=== PATIENT | female | born 1970 | race Caucasian/White ===

== ENCOUNTER 2018-11-18 05:41 | Inpatient (IN) | payer BC ==
[2018-11-13 15:25] VITALS: BMI 31.2
[2018-11-18] VITALS (16 sets, daily range): BP systolic 100–146; BP diastolic 46–85; PULSE 56–69; RESP 16–21; Ht 154.9 cm; Wt 72.5 kg
[~2018-11-18] VITALS: Ht 154.9 cm; Wt 72.5 kg
[~2018-11-18 05:41] MED LIST: DEXA4TAB PO; DEXA6TAB2 PO; FAMO-96 PO; LEVE-5 PO
[2018-11-18] MEDS ORDERED: CEFAZOLIN 2 GM/50 ML (PMX) 50 ML IVPB SCH (06:00)
[2018-11-18] MEDS ORDERED: SOD CHLORIDE 0.9% 1,000 ML IV ONE (06:00)
[2018-11-18] MEDS ORDERED: THROMBIN 5000 UNIT (RECOTHROM) VIAL ONE ×4 (06:58→14:36)
[2018-11-18] MEDS ORDERED: GELATIN SIZE 100 SPONGE ONE ×2 (06:58→14:36)
[2018-11-18] MEDS ORDERED: LIDOCAINE 1%/EPI 30 ML INJ ONE (06:59)
[2018-11-18] MEDS ORDERED: POLYMYXIN/BACITRACIN 1L IRRIG ONE ×2 (06:59→11:45)
[2018-11-18] MEDS ORDERED: POVIDONE IODINE 10% 28.4 GM OINT ONE (07:40)
[2018-11-18] MEDS ORDERED: PROPOFOL 20 ML ONE (07:40)
[2018-11-18] MEDS ORDERED: SEVOFLURANE 15 MIN ONE (07:40)
[2018-11-18] MEDS ORDERED: ROCURONIUM 50 MG INJ ONE (07:46)
[2018-11-18] MEDS ORDERED: LIDOCAINE 2% (SDV) 5 ML INJ ONE (07:46)
[2018-11-18] MEDS ORDERED: MANNITOL 20% 500 ML IV ONE (08:00)
[2018-11-18] MEDS ORDERED: DEXAMETHASONE 4 MG/ML 5 ML INJ ONE ×2 (08:23→14:40)
[2018-11-18] MEDS ORDERED: BUPIVACAINE 0.5% (SDV) 30 ML INJ ONE (09:02)
[2018-11-18] MEDS ORDERED: HEMOSTATIC MATRIX SYG ZFS ONE (09:44)
[2018-11-18] MEDS ORDERED: HEMOSTATIC MATRIX/ THROMBIN 1 EA SYG ZFS ONE ×2 (11:16→14:50)
[2018-11-18] MEDS ORDERED: ALBUMIN HUMAN 5% 250 ML ONE (14:44)
[2018-11-18] MEDS ORDERED: BACITRACIN/POLYMYXIN 28.35 GM OINT TOP ONE (15:22)
[2018-11-18] MEDS ORDERED: MIDAZOLAM 1 MG/ML 2 ML INJ IV PRN ×2 (16:00→16:30)
[2018-11-18] MEDS ORDERED: HYDROmorphONE 0.5 MG/0.5 ML SYG IV PRN ×4 (16:00→17:00)
[2018-11-18] MEDS ORDERED: ONDANSETRON 4 MG INJ IV PRN ×3 (16:00→17:00)
[2018-11-18] MEDS ORDERED: LABETALOL HCL 20MG INJ IV PRN ×2 (16:00→16:30)
[2018-11-18] MEDS ORDERED: MEPERIDINE 25 MG INJ IV PRN ×2 (16:00→16:30)
[2018-11-18] MEDS ORDERED: hydrALAzine 20 MG INJ IV PRN ×2 (16:00→16:30)
[2018-11-18] MEDS ORDERED: ALBUTEROL 0.083% (NEB) 2.5 MG/3 ML AMP HHN PRN ×2 (16:00→16:30)
[2018-11-18] MEDS ORDERED: DIPHENHYDRAMINE 50 MG INJ IV PRN ×2 (16:00→16:30)
[2018-11-18] MEDS ORDERED: EPHEDrine 25 MG/5 ML SYG IV PRN ×2 (16:00→16:30)
[2018-11-18] MEDS ORDERED: HYDROmorphONE 1 MG/5 ML IV SYRINGE IV PRN ×3 (16:30)
[2018-11-18] MEDS ORDERED: METOCLOPRAMIDE 10 MG INJ IV PRN (16:30)
[2018-11-18] MEDS ORDERED: NS + KCL 20 MEQ 1,000 ML IV SCH (17:00)
[2018-11-18] MEDS ORDERED: HYDROCODONE/APAP (5/325) TAB PO PRN (17:00)
[2018-11-18] MEDS ORDERED: CEFAZOLIN 1 GM/50 ML (PMX) 50 ML IVPB SCH (17:00)
[2018-11-18] MEDS ORDERED: BISACODYL 10 MG SUPP PR PRN (17:00)
[2018-11-18] MEDS ORDERED: NALOXONE (0.4 MG/ML) INJ IV PRN (17:00)
[2018-11-18] MEDS ORDERED: DEXAMETHASONE 4 MG/ML 1 ML INJ IV SCH (18:00)
[2018-11-18] MEDS: DOCUSATE SODIUM 100 MG CAP PO SCH (20:41)
[2018-11-18] MEDS: NEOMYC/POLYMYX/BACIT 30 GM OINT TOP SCH (20:42)
[2018-11-18] MEDS: CEFAZOLIN 1 GM/50 ML (PMX) 50 ML IVPB SCH (20:43)
[2018-11-18] MEDS: NS + KCL 20 MEQ 1,000 ML IV SCH (20:43)
[2018-11-18] MEDS: LEVETIRACETAM 500 MG (PMX) 100 ML IVPB SCH (20:43)
[2018-11-19] VITALS (54 sets, daily range): BP systolic 99–167; BP diastolic 63–129; PULSE 63–108; RESP 15–25
[2018-11-19] MEDS: DEXAMETHASONE 4 MG/ML 1 ML INJ IV SCH ×4 (00:22→18:08)
[2018-11-19] MEDS: CEFAZOLIN 1 GM/50 ML (PMX) 50 ML IVPB SCH ×2 (04:42→12:57)
[2018-11-19] MEDS ORDERED: PANTOPRAZOLE 40 MG INJ IV SCH (06:00)
[2018-11-19] MEDS: NS + KCL 20 MEQ 1,000 ML IV SCH ×2 (08:17→18:08)
[2018-11-19] MEDS: NEOMYC/POLYMYX/BACIT 30 GM OINT TOP SCH ×3 (09:20→20:07)
[2018-11-19] MEDS: LEVETIRACETAM 500 MG (PMX) 100 ML IVPB SCH ×2 (09:20→20:06)
[2018-11-19] MEDS: DOCUSATE SODIUM 100 MG CAP PO SCH ×2 (16:36→20:06)
[2018-11-20] MEDS: DEXAMETHASONE 4 MG/ML 1 ML INJ IV SCH ×4 (00:43→17:34)
[2018-11-20] MEDS: NS + KCL 20 MEQ 1,000 ML IV SCH ×3 (03:24→23:38)
[2018-11-20 04:35] VITALS: BP 125/75; PULSE 67; RESP 17
[2018-11-20 07:40] VITALS: BP 116/64; PULSE 71; RESP 20
[2018-11-20] MEDS: DOCUSATE SODIUM 100 MG CAP PO SCH ×2 (08:30→20:54)
[2018-11-20] MEDS: FAMOTIDINE 20 MG INJ IV SCH ×2 (08:30→20:54)
[2018-11-20] MEDS: NEOMYC/POLYMYX/BACIT 30 GM OINT TOP SCH ×3 (08:30→21:02)
[2018-11-20] MEDS: LEVETIRACETAM 500 MG (PMX) 100 ML IVPB SCH ×2 (09:00→21:02)
[2018-11-20] MEDS ORDERED: DEXTROSE 50% 50 ML SYRINGE IV PRN ×2 (11:30)
[2018-11-20] MEDS ORDERED: GLUCAGON 1 MG INJ IM PRN (11:30)
[2018-11-20] MEDS ORDERED: GLUCOSE GEL 15 GRAM TUBE BUCCAL PRN (11:30)
[2018-11-20] MEDS ORDERED: GLUCOSE GEL 15 GRAM TUBE PO PRN ×2 (11:30)
[2018-11-20 11:37] VITALS: BP 114/68; PULSE 76; RESP 20
[2018-11-20] MEDS: INSULIN ASPART [NOVOLOG] 3 ML PEN SC SCH ×3 (12:22→21:01)
[2018-11-20 15:18] VITALS: BP 111/65; PULSE 84; RESP 20
[2018-11-20 19:22] VITALS: BP 119/56; PULSE 77; RESP 18
[2018-11-21] VITALS: BP 122/59; PULSE 75; RESP 17
[2018-11-21] MEDS: DEXAMETHASONE 4 MG/ML 1 ML INJ IV SCH ×5 (00:47→23:52)
[2018-11-21 04:32] VITALS: BP 109/62; PULSE 62; RESP 17
[2018-11-21 07:31] VITALS: BP 114/63; PULSE 69; RESP 17
[2018-11-21] MEDS: INSULIN ASPART [NOVOLOG] 3 ML PEN SC SCH ×5 (07:55→20:59)
[2018-11-21] MEDS: NEOMYC/POLYMYX/BACIT 30 GM OINT TOP SCH ×3 (08:14→20:37)
[2018-11-21] MEDS: DOCUSATE SODIUM 100 MG CAP PO SCH ×2 (08:15→20:30)
[2018-11-21] MEDS: FAMOTIDINE 20 MG INJ IV SCH ×2 (08:15→20:30)
[2018-11-21] MEDS: LEVETIRACETAM 500 MG (PMX) 100 ML IVPB SCH ×2 (09:39→20:30)
[2018-11-21] MEDS: NS + KCL 20 MEQ 1,000 ML IV SCH ×2 (09:43→20:30)
[2018-11-21 11:03] VITALS: BP 112/55; PULSE 75; RESP 17
[2018-11-21 15:24] VITALS: BP 103/60; PULSE 82; RESP 20
[2018-11-22] VITALS: BP 105/61; PULSE 68; RESP 18
[2018-11-22 04:00] VITALS: BP 146/74; PULSE 64; RESP 19
[2018-11-22] MEDS: DEXAMETHASONE 4 MG/ML 1 ML INJ IV SCH ×2 (06:26→12:27)
[2018-11-22 07:34] VITALS: BP 130/67; PULSE 60; RESP 20
[2018-11-22] MEDS: INSULIN ASPART [NOVOLOG] 3 ML PEN SC SCH ×2 (08:16→11:37)
[2018-11-22] MEDS: NEOMYC/POLYMYX/BACIT 30 GM OINT TOP SCH ×2 (08:21→12:28)
[2018-11-22] MEDS: FAMOTIDINE 20 MG INJ IV SCH (08:22)
[2018-11-22] MEDS: LEVETIRACETAM 500 MG (PMX) 100 ML IVPB SCH (08:22)
[2018-11-22] MEDS: DOCUSATE SODIUM 100 MG CAP PO SCH (08:22)
[2018-11-22 11:50] VITALS: BP 132/70; PULSE 70; RESP 20
== END 2018-11-22 14:39 | disposition home health service (06) | DRG 26 ==
LOC: REC 05:41 → ICU 17:30 → TEL 11-19 23:36
PROVIDERS: ADMIT Neurological Surgery; ATTEND Neurological Surgery
PROC: 00B20ZZ Excision of Dura Mater, Open Approach (ICD-10-PCS; 2018-11-18)
PROC: 8E09XBZ Computer Assisted Procedure of Head and Neck Region (ICD-10-PCS; 2018-11-18)
PROC: 00B70ZZ Excision of Cerebral Hemisphere, Open Approach (ICD-10-PCS; principal; 2018-11-18 07:30)
DX: C79.31 Secondary malignant neoplasm of brain (principal); R47.01 Aphasia; G81.91 Hemiplegia, unspecified affecting right dominant side; C50.919 Malignant neoplasm of unspecified site of unspecified female breast; R73.9 Hyperglycemia, unspecified; Z79.899 Other long term (current) drug therapy; R47.1 Dysarthria and anarthria; R47.02 Dysphasia; T38.0X5A Adverse effect of glucocorticoids and synthetic analogues, initial encounter
CPT/HCPCS: 70450; 70553; 80048; 82962; 85025; 86850; 86900; 86901; 86920; 87086; 88307; 88331; 88341; 88342; 92507; 92523; 92526; 92610; 97110; 97116; 97163; 97165; 97530; 97535; C1713; C1765; C9113; J0690; J1100; J1170; J1815; J1953; J3010; J3480; J7030; P9045